=== PATIENT | male | born 1960 | race Caucasian/White ===

== ENCOUNTER 2018-07-27 07:21 | Day surgery (SDC) | payer OTHER ==
[~2018-07-27] VITALS: Ht 165.1 cm; Wt 85.7 kg
[~2018-07-27 07:21] MED LIST: PROPOFOL 200 MG INJ ONE
[2018-07-27 08:10] VITALS: BP 119/72; PULSE 56; RESP 18
[2018-07-27 08:14] VITALS: Ht 165.1 cm; Wt 85.7 kg
[2018-07-27] MEDS ORDERED: IBUP-1545 PO (08:24)
[2018-07-27] MEDS ORDERED: HTN (08:24)
[2018-07-27] MEDS ORDERED: ATORVASTATIN PO (08:24)
--- NOTE | 2018-07-27 08:42 | PREAC ---
Date/Time of Note Date/Time of Note DATE: 07/27/18 TIME: 08:40 Anesthesia Eval and Record Evaluation Time Pre-Procedure Interview DATE: 07/27/18 TIME: 08:40 Age 57 Sex male NPO: 8 hrs Preoperative diagnosis ABDOMINAL PAIN, RECTAL BLEED Planned procedure EGD AND COLON Past Medical History Past Medical History: Includes Cardio: HTN Musculoskeletal: Osteoarthritis Surgery & Anesthesia Issues No known issue Meds Anticoagulation: No Beta Adriana within 24 hr: No Reason Beta Adriana not given: Pt. not on B-Adriana Reported Medications [Atorvastatin] No Conflict Check, PO DAILY 07/27/18 [Htn Oral Med] No Conflict Check, DAILY 07/27/18 Ibuprofen* (Ibuprofen*) 800 Mg Tab, 800 MG PO DAILY PRN for PAIN AND/OR INFLAMMATION, TAB 07/27/18 Meds reviewed: Yes Allergies Coded Allergies: No Known Allergy (Unverified , 07/27/18) Allergies Reviewed: Yes Labs/Studies Labs Reviewed: Reviewed by anesthesiologist test: N/A Pre-procedure Exam Airway: Adequate mouth opening, Adequate thyromental dist Mallampati: Mallampati I Teeth: Normal Lung: Normal Heart: Normal ASA Physical Status ASA physical status: 2 Emergency: None Planned Anesthetic General/MAC: MAC Planned Pain Management Parenteral pain med Pre-operative Attestations Prior to commencing anesthesia and surgery, the patient was re-evaluated, there was verification of: *The patient's identity *The results of appropriate recent lab work and preoperative vital signs *The above evaluation not changing prior to induction *Anesthetic plan, risk benefits, alternative and complications discussed with patient/family; questions answered; patient/family understands, accepts and wishes to proceed. FELICIANO DISLA Jul 27, 2018 08:42
[2018-07-27 08:56] VITALS: BP 130/74; PULSE 54; RESP 16
[2018-07-27] MEDS ORDERED: FENTAnyl 50 MCG/ML VIAL IV PRN (09:00)
[2018-07-27] MEDS ORDERED: MEPERIDINE 25 MG INJ IV PRN (09:00)
[2018-07-27] MEDS ORDERED: EPHEDrine SULFATE 50 MG/5 ML SYG IV PRN (09:00)
[2018-07-27] MEDS ORDERED: METOCLOPRAMIDE 10 MG INJ IV PRN (09:00)
[2018-07-27] MEDS ORDERED: hydrALAzine 20 MG INJ IV PRN (09:00)
[2018-07-27] MEDS ORDERED: DIPHENHYDRAMINE 50 MG INJ IV PRN (09:00)
[2018-07-27] MEDS ORDERED: ALBUTEROL 0.083% (NEB) 2.5 MG/3 ML AMP HHN PRN (09:00)
[2018-07-27] MEDS ORDERED: ONDANSETRON 4 MG INJ IV PRN (09:00)
[2018-07-27] MEDS ORDERED: LABETALOL HCL 20MG INJ IV PRN (09:00)
[2018-07-27] MEDS ORDERED: OXYCODONE/ACETAMINOPHEN (5/325) TAB PO PRN (09:00)
[2018-07-27] MEDS ORDERED: LIDOCAINE 2% (SDV) 5 ML INJ ONE (09:01)
[2018-07-27] MEDS ORDERED: PROPOFOL 60 ML ONE (09:01)
--- NOTE | 2018-07-27 09:27 | PAC ---
Date/Time of Note Date/Time of Note DATE: 07/27/18 TIME: 09:27 Post-Anesthesia Notes Post-Anesthesia Note Last documented vital signs Vital Signs Date Temp Pulse Resp B/P (MAP) Pulse Ox O2 O2 Flow FiO2 Time Delivery Rate 07/27/18 97.6 54 16 130/74 96 Room Air 0927 (92) Activity: WNL Respiratory function: WNL Cardiovascular function: WNL Mental status: Baseline Pain reasonably controlled: Yes Hydration appropriate: Yes Nausea/Vomiting absent: Yes FELICIANO DISLA Jul 27, 2018 09:27
[2018-07-27 10:09] VITALS: BP 108/61; PULSE 50; RESP 16
== END 2018-07-27 09:38 | disposition home or self-care (01) ==
LOC: GIL 07:21
PROVIDERS: ATTEND Internal Medicine Gastroenterology
DX: K92.1 Melena (principal); K29.30 Chronic superficial gastritis without bleeding; K64.8 Other hemorrhoids; I10 Essential (primary) hypertension
CPT/HCPCS: 43239; 45378; 88305; 88312; Z7610